=== PATIENT | male | born 1960 | race African-American/Black ===

== ENCOUNTER 2018-02-15 13:55 | Inpatient (IN) | payer MEDICAID ==
[~2018-02-15] VITALS: Ht 175.3 cm; Wt 118.1 kg
[2018-02-15] MEDS ORDERED: MORPHINE SULFATE 4 MG/ML CPJ (NOT FOR IM USE) IV STA (15:11)
[2018-02-15] MEDS ORDERED: SODIUM CHLORIDE 0.9% 1,000 ML IV ONE (15:11)
[2018-02-15] MEDS ORDERED: ONDANSETRON HCL 4MG/2ML INJ IV STA (15:11)
[2018-02-15 15:48] LABS: HEMOGLOBIN. 13.9 g/dL (14.0-18.0); MEAN CORPUSCULAR HEMOGLOBIN 29.8 pg (28.0-32.0); MEAN CORPUSCULAR VOLUME 90.2 fL (80.0-94.0); MEAN PLATELET VOLUME 8.9 fl (7.4-10.4); PLATELET 185 x1000/uL (130-400); RED BLOOD CELL COUNT 4.65 mill/uL (4.7-6.1); RED CELL DISTRIBUTION WIDTH 14.4 % (11.6-14.6)
[2018-02-15 15:56] LABS: D-DIMER 0.4 mg/L FEU (<0.50); INR 1.1; PROTHROMBIN TIME 11.4 sec (9.1-11.1)
[2018-02-15 15:59] LABS: CHLORIDE 103 mEq/L (98-107)
[2018-02-15 16:15] LABS: PLATELET ESTIMATE NORMAL
[2018-02-15] MEDS ORDERED: CEFTRIAXONE 1 G PREMIX 50 ML IV ONE (18:15)
[2018-02-15] MEDS ORDERED: AZITHROMYCIN 500 MG TABLET PO ONE (18:15)
[2018-02-15] MEDS ORDERED: ASPIRIN 325MG EC TABLET PO ONE (18:15)
[2018-02-15] MEDS ORDERED: DOXYCYCLINE 100 MG in DEXT 5% WATER 100 ML IV SCH (18:45)
[2018-02-15 19:29] LABS: CLARITY URINE CLEAR (CLEAR); COLOR URINE YELLOW (YELLOW); KETONES URINE TRACE (NEGATIVE); LEUKOCYTE ESTERASE URINE 3+ (NEGATIVE); NITRITE URINE NEGATIVE (NEGATIVE); OCCULT BLOOD URINE 2+ (NEGATIVE); PH URINE 5.5 (4.5-8.0); PROTEIN URINE NEGATIVE (NEGATIVE); SPECIFIC GRAVITY URINE 1.011 (1.005-1.030); UROBILINOGEN URINE 0.2 E.U./dL (0.2-1.0)
[2018-02-15 22:00] VITALS: BP 126/76
[2018-02-15] MEDS ORDERED: ASPI-986 PO (22:35)
[2018-02-15 22:49] VITALS: BP 126/76
[2018-02-15] MEDS ORDERED: HYDROCODONE/ACETAMINOPHEN 5/325MG TABLET PO PRN (23:30)
[2018-02-16 00:13] VITALS: BP 119/79
[2018-02-16] MEDS: ACETAMINOPHEN 325MG TABLET PO PRN (00:20)
[2018-02-16 04:00] VITALS: BP 111/82
[2018-02-16 06:28] LABS: CHLORIDE 107 mEq/L (98-107)
[2018-02-16 06:44] LABS: CREATINE KINASE 241 IU/L (39-308); HDL CHOLESTEROL 61 mg/dL (40-59); LDL CHOLESTEROL 42 mg/dL (5-100)
[2018-02-16 07:09] LABS: BASOPHILS % 0.5 % (0.0-2.0); EOSINOPHILS % 0.5 % (0.0-5.0); HEMATOCRIT. 38.4 % (42.0-52.0); LYMPHOCYTES % 11.2 % (20.0-50.0); MEAN CORPUSCULAR HEMOGLOBIN 30.2 pg (28.0-32.0); MEAN CORPUSCULAR VOLUME 89.5 fL (80.0-94.0); MONOCYTES % 11.1 % (2.0-8.0); NEUTROPHILS % 76.7 % (40.0-76.0); PLATELET 174 x1000/uL (130-400); RED BLOOD CELL COUNT 4.29 mill/uL (4.7-6.1); RED CELL DISTRIBUTION WIDTH 14.8 % (11.6-14.6)
[2018-02-16 08:00] VITALS: BP 120/87
[2018-02-16] MEDS: ENOXAPARIN 30MG/0.3ML SYR SUBCUT SCH ×2 (08:06→21:34)
[2018-02-16] MEDS: DOXYCYCLINE 100 MG in DEXT 5% WATER 100 ML IV SCH ×2 (11:00→21:34)
[2018-02-16 12:00] VITALS: BP 132/98
[2018-02-16] MEDS ORDERED: CLONIDINE 0.1MG TABLET PO PRN (13:00)
[2018-02-16] MEDS ORDERED: CLONIDINE 0.2MG TABLET PO PRN (13:00)
[2018-02-16] MEDS ORDERED: REGADENOSON 0.4 MG/5 ML IV NR (13:00)
[2018-02-16] MEDS: AMLODIPINE 2.5MG TABLET PO SCH ×2 (13:00→21:00)
[2018-02-16 14:54] LABS: *AMPHETAMINES SCREEN URINE NEGATIVE (NEGATIVE); *BARBITURATES SCREEN URINE NEGATIVE (NEGATIVE); *BENZODIAZEPINES SCREEN URINE NEGATIVE (NEGATIVE); *COCAINE SCREEN URINE NEGATIVE (NEGATIVE)
[2018-02-16 14:55] LABS: CANNABINOID URINE SCREEN NEGATIVE (NEGATIVE); METHADONE URINE SCREEN NEGATIVE (NEGATIVE); OPIATES URINE SCREEN PRESUMTIVE POSITIVE (NEGATIVE); PHENCYCLIDINE URINE SCREEN NEGATIVE (NEGATIVE)
[2018-02-16 16:00] VITALS: BP 139/70
[2018-02-16 17:24] LABS: CREATINE KINASE 244 IU/L (39-308); CREATINE KINASE MB FRACTION 1.2 ng/mL (0.5-3.6)
[2018-02-16 20:00] VITALS: BP 121/83
[2018-02-17] VITALS (7 sets, daily range): BP systolic 121–163; BP diastolic 77–93
[2018-02-17] MEDS: ACETAMINOPHEN 325MG TABLET PO PRN (01:43)
[2018-02-17 06:14] LABS: BASOPHILS % 0.3 % (0.0-2.0); EOSINOPHILS % 2.2 % (0.0-5.0); HEMATOCRIT. 39.3 % (42.0-52.0); HEMOGLOBIN. 13.2 g/dL (14.0-18.0); MEAN CORPUSCULAR VOLUME 89.5 fL (80.0-94.0); MONOCYTES % 9.5 % (2.0-8.0); PLATELET 188 x1000/uL (130-400); RED BLOOD CELL COUNT 4.39 mill/uL (4.7-6.1); RED CELL DISTRIBUTION WIDTH 14.5 % (11.6-14.6)
[2018-02-17 06:52] LABS: CHLORIDE 107 mEq/L (98-107)
[2018-02-17] MEDS: AMLODIPINE 2.5MG TABLET PO SCH (09:00)
[2018-02-17] MEDS ORDERED: REGADENOSON 0.4 MG/5 ML IV ONE (09:55)
[2018-02-17] MEDS: ENOXAPARIN 30MG/0.3ML SYR SUBCUT SCH (11:17)
[2018-02-17] MEDS: DOXYCYCLINE 100 MG in DEXT 5% WATER 100 ML IV SCH (11:18)
[2018-02-17] MEDS: KETOROLAC 30MG/ML VIAL IV SCH ×3 (11:18→18:23)
[2018-02-17] MEDS: CEFTRIAXONE 1 G PREMIX 50 ML IV SCH ×2 (12:08→12:17)
[2018-02-17] MEDS ORDERED: CIPR-263 PO (19:36)
[2018-02-17] MEDS ORDERED: IBUP-2030 PO (19:37)
[2018-02-17] MEDS ORDERED: TAMS-11 PO (19:38)
[2018-02-17] MEDS ORDERED: DOXY100T2 PO (19:40)
[2018-02-18 07:17] LABS: CHLAMYDIA TRACHOMATIS NAA Negative (Negative); NEISSERIA GONORRHOEAE NAA Negative (Negative)
[2018-02-19 08:16] LABS: HIV SCREEN 4G Non Reactive (Non Reactive)
== END 2018-02-17 20:20 | disposition home or self-care (01) | DRG 720 ==
LOC: ER 13:55 → EDBEDREQ 18:51 → EDBEDREQTM 18:51 → ENRESERV 20:30 → 6WST 22:33
PROVIDERS: ADMIT Internal Medicine; ATTEND Internal Medicine
DX: A41.9 Sepsis, unspecified organism (principal); E66.01 Morbid (severe) obesity due to excess calories; N45.3 Epididymo-orchitis; I10 Essential (primary) hypertension; R07.89 Other chest pain; N44.2 Benign cyst of testis; N43.3 Hydrocele, unspecified; Z68.38 Body mass index [BMI] 38.0-38.9, adult; M94.0 Chondrocostal junction syndrome [Tietze]
CPT/HCPCS: 36415; 71045; 74176; 76870; 78452; 80048; 80053; 80061; 80305; 81003; 82550; 82553; 83690; 83735; 84484; 85025; 85379; 85610; 85730; 87086; 87389; 87491; 87591; 93005; 93017; 93306; 93970; 93976; 96374; 96375; 99285; A9500; J0696; J1650; J1885; J2270; J2405; J2785; J3490; J7030; J7060

== ENCOUNTER 2018-07-03 11:44 | Emergency (ER) | payer MEDICAID ==
[~2018-07-03] VITALS: Ht 172.7 cm; Wt 127.0 kg
[~2018-07-03 11:44] MED LIST: ASPI-986 PO; CIPR-263 PO; DOXY100T2 PO; IBUP-2030 PO; TAMS-11 PO
[2018-07-03 13:30] VITALS: BP 133/90
== END 2018-07-03 13:34 | disposition home or self-care (01) ==
LOC: ER 11:44
DX: S46.911A Strain of unspecified muscle, fascia and tendon at shoulder and upper arm level, right arm, initial encounter (principal); Z79.899 Other long term (current) drug therapy; W01.0XXA Fall on same level from slipping, tripping and stumbling without subsequent striking against object, initial encounter; Y93.89 Activity, other specified; Y92.89 Other specified places as the place of occurrence of the external cause; Y99.8 Other external cause status
CPT/HCPCS: 99283

== ENCOUNTER 2019-01-13 12:24 | Emergency (ER) | payer MEDICAID ==
[~2019-01-13] VITALS: Ht 175.3 cm; Wt 126.0 kg
[2019-01-13] MEDS ORDERED: ASPIRIN 81MG TABLET PO ONE (13:45)
[2019-01-13] MEDS ORDERED: NITROGLYCERIN 0.4MG TABLET SL SL PRN (13:45)
[2019-01-13 14:16] LABS: BASOPHILS % 0.7 % (0.0-2.0); HEMATOCRIT. 40.2 % (42.0-52.0); HEMOGLOBIN. 13.4 g/dL (14.0-18.0); LYMPHOCYTES % 20.8 % (20.0-50.0); MEAN CORPUSCULAR HEMOGLOBIN 30.2 pg (28.0-32.0); MEAN CORPUSCULAR VOLUME 90.5 fL (80.0-94.0); MEAN PLATELET VOLUME 8.8 fl (7.4-10.4); MONOCYTES % 10.1 % (2.0-8.0); NEUTROPHILS % 67.4 % (40.0-76.0); PLATELET 157 x1000/uL (130-400); RED BLOOD CELL COUNT 4.44 mill/uL (4.7-6.1)
[2019-01-13 14:19] LABS: CHLORIDE 108 mEq/L (98-107)
[2019-01-13 15:45] VITALS: BP 124/86
== END 2019-01-13 15:55 | disposition home or self-care (01) ==
LOC: ER 12:24 → CANBEDREQ 20:47
DX: R07.89 Other chest pain (principal); Z79.82 Long term (current) use of aspirin; Z79.899 Other long term (current) drug therapy
CPT/HCPCS: 36415; 71045; 80053; 83880; 84484; 85025; 93005; 99284; Z7610